=== PATIENT | male | born 1995 | race Caucasian/White ===

== ENCOUNTER 2022-04-15 00:36 | Day surgery (SDC) | payer OTHER, SELFPAY ==
[2022-04-09 16:36] VITALS: BMI 27.8
--- NOTE | 2022-04-09 16:42 | PC.NURSE ---
Report to the Outpatient Waiting Room, entrance under the green pavilion located off [facility], at time 0745 on date 04/15/22. OR Time: 0945. Time changes happen often and if your time is changed the preop area will call you the afternoon before. - You and your visitor will be asked to self-screen and do not enter if you have any COVID symptoms. - Only one visitor and NO children visitors are allowed at this time. - The patient visitor is requested to leave or wait in car when not with patient due to restrictions. - A mask is required within the hospital. Patients may have clear liquids (water, carbonated beverages, clear teas, apple juice) until 3 hours prior to surgery with a maximum of 20 ounces. - No food from midnight until time of surgery Take the following medications with a SIP of water the morning of surgery: ESCITALOPRAM Medications to discontinue per physician: N/A Date to take last dose: N/A Please no make-up, nail greek, hairspray, perfume, deodorant, or body powder the day of surgery. No jewelry (including any body piercings) or valuables the day of surgery, leave them at home. Please take a shower or bath the night before, or the morning of, surgery with an antibacterial soap. Wear comfortable, loose fitting clothing. - Jewelry must be removed prior to entering the operating room. Rings and piercings that are not removed may be cut off. - The hospital will not accept responsibility for valuables. - Please leave all valuables, including medications, at home the day of surgery. If you are going home after surgery, a licensed milk delivery driver must drive you home. - NO public transportation without another adult. - We recommend that an adult stay with you for 24 hours following discharge. - We also recommend that you do not drive, make important decision, drink alcoholic beverages, or take any drugs that were not prescribed by your health care provider for at least 24 hours after your discharge time. Follow any additional instructions given to you from your surgeon. If you or anyone in your household have experienced Covid symptoms in the past week, please notify your surgeon or the nurse liaison at the phone number below for possible testing. Telephone instructions given to PT - HAKAN SHELBY and asked if any additional questions and then verbalized understanding. Patient advised to call surgeon office or pre surgery nurse liaison [phone] if any additional questions.
[2022-04-15] VITALS (8 sets, daily range): BP systolic 133–173; BP diastolic 66–97; PULSE 52–98; RESP 12–16; TEMP 36.1–36.2; O2SAT 97–100
--- NOTE | 2022-04-15 08:09 | PM.IMHP ---
H&P: HPI History of Present Illness Date/Time: 04/15/22 08:09 Chief Complaint: deviated septum, nasal deformity Review of Systems Review of Systems: All systems reviewed & are unremarkable except as noted in HPI and below [facility] Social History Social History Smoking status: Current some day smoker Alcohol intake: never Substance use: current Substance use type: marijuana Living arrangements: with friend(s) Spiritual care concerns: No Meds Home Medications and Allergies Home Medications Medication Instructions Recorded Confirmed Type chorionic gonadotropin, human 10,000 unit IM 2XW 04/09/22 04/09/22 History 10,000 unit intramuscular solution (Pregnyl) escitalopram oxalate 20 mg tablet 20 mg PO DAILY 04/09/22 04/09/22 History testosterone enanthate 50 mg/0.5 50 mg subcut 2XW 04/09/22 04/09/22 History mL subcutaneous auto-injector Allergies Allergy/AdvReac Type Severity Reaction Status Date / Time No Known Allergies Allergy Verified 04/09/22 16:33 Exam Narrative: 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 Assessment and Plan Assessment and plan (1) Acquired deformity of nose: Code(s): M95.0 - Acquired deformity of nose Status: Acute Plan Spike has significant nasal deviation including the tip, septum and columella. Here today for septorhinoplasty with turbinate reduction. r/b/a reviewed with patient who understands and agrees to proceed. Refer to outpt H&P for full details.
--- NOTE | 2022-04-15 08:11 | WPDHPUPDATE1 ---
History and Physical Update Update Date/Time: 04/15/22 08:11 History and Physical has been reviewed, including an updated exam of the patient. There are NO changes in the patient's condition. Risks, benefits, and alternatives have been discussed and questions answered. Patient agrees to proceed with procedure.
--- NOTE | 2022-04-15 08:18 | WPDANESEPPF ---
Anes - Initial Pre Proc Eval Procedure: Operation Date: 04/15/22 09:45 Proposed Procedures p Endoscopic Septoplasty - Raphael Shields MD s Bilateral Turbinate Reduction with Rhinoplasty - Raphael Shields MD Date/Time: 04/15/22 08:18 Surgeon: Raphael Shields MD Pre Op Diagnosis: Deviated Septum, Turbinate Hypertrophy Patient Data Age: 26 Gender: M Height: 1.83 m Weight: 93 kg Allergies Allergy/AdvReac Type Severity Reaction Status Date / Time No Known Allergies Allergy Verified 04/09/22 16:33 Home Medications Medication Instructions Recorded Confirmed Type chorionic gonadotropin, human 10,000 unit IM 2XW 04/09/22 04/09/22 History 10,000 unit intramuscular solution (Pregnyl) escitalopram oxalate 20 mg tablet 20 mg PO DAILY 04/09/22 04/09/22 History testosterone enanthate 50 mg/0.5 50 mg subcut 2XW 04/09/22 04/09/22 History mL subcutaneous auto-injector Patient hx anesthesia problems: none Family hx anesthesia problems: none Results Review: All pre-operative results and documents have been reviewed as part of the pre-operative evaluation. [facility] Past Medical History Medical History (Updated 04/15/22 @ 08:19 by Scott Villareal MD) Anxiety Depression Social History Social History Smoking status: Current some day smoker Alcohol intake: never Substance use: current Substance use type: marijuana Living arrangements: with friend(s) Spiritual care concerns: No Anes - Eval Final PreProcedure Day of Procedure 04/15/22 08:18 Patient weight: normal Heart: regular rate and rhythm Lungs: clear to auscultation Airway: Mallampati scale class II Neurological: alert and oriented Last oral intake: >/= 8 hours ASA classification: III Emergent: no Anesthetic plan: proceed Anesthesia type and monitoring: general ETT and standard monitoring Results Review: All pre-operative results and documents have been reviewed as part of the pre-operative evaluation. Informed Consent: The patient's anesthetic plan and its attendant risks and benefits were discussed with the patient/family/POA. Questions were solicited and answers provided to the satisfaction of the patient/family/POA.
[2022-04-15] MEDS: ACETAMINOPHEN 500 MG TABLET 1000 MG PO (08:25)
[2022-04-15] MEDS: OXYMETAZOLINE HCL 0.05% NAS 15 ML BTL (*BKC) 1 SPRAY NASAL ×2 (08:30→09:15)
[2022-04-15] MEDS: LACTATED RINGERS 1,000 ML 30 ML IV CONT (08:30)
[2022-04-15] MEDS: ceFAZolin 2 GM/D5W 50 ML 2 GM/50 ML BAG IVPB (08:39)
[2022-04-15] MEDS: MUPIROCIN 2% OINT 22 GM TUBE 1 APPLIC EACH NARE (09:57)
[2022-04-15] MEDS: LIDO 1%/EPINEPHRINE 1:100,000 10 ML VIAL 20 ML INFILTRATE (10:02)
--- NOTE | 2022-04-15 10:07 | W.PM.PROC2 ---
Procedure Note - Detailed Date of Procedure 04/15/22 Pre-op Diagnosis Deviated Septum, Turbinate Hypertrophy, nasal deformity Post-op Diagnosis Same Procedure Performed Septorhinoplasty, turbinoplasty Surgeon Raphael Shields MD Anesthesia General Indications Nasal deformity with nasal dyspnea Findings Caudal right septal deviation with right medial crural flare. Performed caudal septal repositioning with swinging door technique along maxillary crest, medial crural suturing and right medial crural trimming of foot plate. Description of Procedure The patient was greeted in the preoperative area and all last minute questions answered. The patient was brought to the operating room and placed supine on the operating room table. A timeout was performed. General endotracheal anesthesia was initiated by anesthesia. The nose was injected with 1% lidocaine with 1:100,000 epinephrine in the septum, and soft tissue. Afrin soaked cotton pledgets were then placed in the nose and the patient was prepped and draped in the standard surgical fashion. A right hemitransfixion incision was made. A mucoperichondrial flap was raised on the right. A D knife was used to resect cartilage leaving a 1.5cm L strut. This cartilage was placed in saline. Posterior bony deviation was removed with the septal scissors and clive. The caudal septum was deviated to the right. A 1mm anterior margin was trimmed from the septum. Next, through the francie-transfixion incision, the right medial crura was dissected and exposed and noted to be flared and causing obstruction and distortion of the right nares. A small incision on the left medial crura was made and it was also exposed and dissected with curved iris scissors. Medial crural suturing was performed using 5-0 PDS suture on a p3 needle to reapproximate the medial crura and address the flaring. The right medial crural footplate was still uneven and causing obstruction and was then partially trimmed with a 15 blade to reduce its distortion of the nares. Satisfied with correction and improvement of the nose, the hemitransfixion incision was closed with a 4-0 chromic. A mattress suture was performed with a 4-0 plain gut on a Naman needle. The left medial crural incision was closed with 4-0 chromic as well. The inferior turbinates were reduced with microdebrider, and lateralized with sayer elevator. Phillips splints were placed and sutured to the septum with a 2-0 Prolene. The patient was then turned back to the care of anesthesia and was awakened and extubated in the operating room without complication. The patient was transferred stable to the PACU. Estimated Blood Loss 10 Drains No Packing Yes (phillips splints) Pathology None sent Complications No immediate complications Condition Stable Disposition PACU
== END 2022-04-15 11:45 | disposition home or self-care (01) ==
PROVIDERS: PCP Pediatrics; Visit Provider Otolaryngology
PROC: (CPT 30520; principal; 2022-04-15 09:45)
PROC: (CPT 30420; 2022-04-15 09:45)
DX: M95.0 Acquired deformity of nose (principal); J34.2 Deviated nasal septum; J34.3 Hypertrophy of nasal turbinates; F12.90 Cannabis use, unspecified, uncomplicated; F41.9 Anxiety disorder, unspecified; F32.A Depression, unspecified
CPT/HCPCS: 30420; 30999; A9270; J0330; J0690; J1100; J2250; J2405; J2704; J3010; J7120